=== PATIENT | female | born 1955 | race Asian ===

== ENCOUNTER 2018-12-17 15:41 | Emergency (ER) | payer SELFPAY ==
[~2018-12-17] VITALS: Ht 157.5 cm; Wt 56.7 kg
[2018-12-17 16:45] VITALS: BP 152/73
[2018-12-17] MEDS ORDERED: ACETAMINOPHEN 500 MG TAB PO ONE (17:15)
== END 2018-12-17 17:26 | disposition home or self-care (01) ==
LOC: EDBD 15:41 → ER 15:41
DX: S16.1XXA Strain of muscle, fascia and tendon at neck level, initial encounter (principal); M50.30 Other cervical disc degeneration, unspecified cervical region; V43.62XA Car passenger injured in collision with other type car in traffic accident, initial encounter; Y93.89 Activity, other specified; Y99.8 Other external cause status; Y92.410 Unspecified street and highway as the place of occurrence of the external cause
CPT/HCPCS: 72040